=== PATIENT | male | born 1990 | race Caucasian/White ===

== ENCOUNTER 2018-06-07 19:32 | Emergency (ER) | payer MEDICAID, OTHER | END 2018-06-07 20:57 | disposition left against medical advice (07) | LOC: UCCORT 19:32 | DX: M79.645 Pain in left finger(s) (principal); Z53.21 Procedure and treatment not carried out due to patient leaving prior to being seen by health care provider ==

== ENCOUNTER 2018-06-08 16:20 | Emergency (ER) | payer OTHER ==
[2018-06-08 17:25] VITALS: BP 135/94
--- NOTE | 2018-06-08 18:00 | UC ---
Hand/Wrist HPI - HPI Summary HPI Summary: Slammed third digit of left hand in a steel door frame on 06/04, with avulsion fracture of the distal phalanx diagnsoed on xray at [facility]. Has fracture fragments seen on xray. Finger is splinted, has been using ibuprofen 400mg for pain, taking about 1600mg in the past 12 hours. Increasing pain over the past 2 days. Has had episodes of vomiting x 6 weeks, without assessment by PMD and no interventions made on his part. Smokes, uses ibu for migraines up to 100mg per day, no caffeine. Has been planning to see PMD for assessment. Reviewed [facility] history. - History Of Current Complaint Chief Complaint: UCUpperExtremity Stated Complaint: INJURY LEFT MIDDLE FINGER Time Seen by Provider: 06/08/18 17:45 Hx Obtained From: Patient, Family/Social Welfare Administrator - here with his . Onset/Duration: Sudden Onset, Lasting Days - 4 Severity Initially: Moderate Severity Currently: Severe Pain Intensity: 10 Character Of Pain: Dull, Throbbing Aggravating Factor(s): Movement Alleviating Factor(s): Ice Associated Signs And Symptoms: Positive: Swelling, Redness - Allergies/Home Medications Allergies/Adverse Reactions: Allergies Allergy/AdvReac Type Severity Reaction Status Date / Time No Known Allergies Allergy Verified 06/08/18 17:26 PMH/Surg Hx/FS Hx/Imm Hx - Additional Past Medical History Additional PMH: Does not see MD for regular assessment, with recent recognition of need for evaluation. 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 - Social History Occupation: Employed Full-time - self employed [employer] Lives: With Family Alcohol Use: Occasionally Substance Use Type: None Smoking Status (MU): Heavy Every Day Tobacco Smoker Type: Cigarettes Amount Used/How Often: 1 PK DAILY Household Exposure Type: Cigarettes - Immunization History Most Recent Tetanus Shot: TETANUS WITHIN LAST 5 YRS. Review of Systems All Other Systems Reviewed And Are Negative: Yes Constitutional: Positive: Negative Skin: Positive: Negative Eyes: Positive: Negative ENT: Positive: Negative Respiratory: Positive: Negative Cardiovascular: Positive: Negative Gastrointestinal: Positive: Vomiting Genitourinary: Positive: Other - has never been checked for polycystic kidney disease. Motor: Positive: Decreased ROM - left middle digit. Past avulstion of distal second digit Neurovascular: Positive: Negative Musculoskeletal: Positive: Arthralgia Neurological: Positive: Negative Psychological: Positive: Negative Is Patient Immunocompromised?: Yes Physical Exam Triage Information Reviewed: Yes Appearance: Ill-Appearing - looks thin and chronically unwell, Pain Distress - moderate, Thin Vital Signs: Initial Vital Signs Temp 97.8 F 06/08/18 17:22 Pulse 74 06/08/18 17:22 Resp 16 06/08/18 17:22 BP 135/94 06/08/18 17:22 Pulse Ox 99 06/08/18 17:22 ENT: Positive: Pharynx normal Dental: Positive: Gross Decay/Caries @ - throughout Neck: Positive: Supple, Nontender, No Lymphadenopathy Respiratory: Positive: Lungs clear, Normal breath sounds Cardiovascular: Positive: RRR, No Murmur Abdomen Description: Positive: Nontender, No Organomegaly, Soft Bowel Sounds: Positive: Present Musculoskeletal Exam: Other - left hand third digit with swelling and erythema of distal digit, erythema extending to mid middle phalanx. Area around nail bed is macerated with crusting, dried blood. No subungual hematoma Musculoskeletal: Positive: ROM Limited @ - DIP Neurological: Positive: Alert, Muscle Tone Normal Psychological Exam: Normal Skin Exam: Other - erythema distal 3rd digit left hand Hand/Wrist Course/Dx - Course Course Of Treatment: antibiotics for treatment of cellulitis; improve pain control, omeprazole for recurrent vomiting. Continue splinting and refer to hand surgeon. - Differential Dx/Diagnosis Differential Diagnosis/HQI/PQRI: Cellulitis, Fracture Provider Diagnosis: Cellulitis and abscess of finger, unspecified, Gastritis Discharge - Sign-Out/Discharge Documenting (check all that apply): Patient Departure All imaging exams completed and their final reports reviewed: No Studies - Discharge Plan Condition: Stable Disposition: HOME Prescriptions: Cephalexin CAP* [Keflex 500 CAP*] 500 mg PO QID #28 cap Hydrocodone/Acetaminophen [Hydrocodone/Acetaminophen 5-325 mg] 2 tab PO Q8H PRN #20 tab MDD 6 PRN Reason: Pain - Moderate To Severe Omeprazole CAP* [Prilosec CAP* 20 MG] 20 mg PO DAILY #30 cap. Patient Education Materials: Cellulitis (ED), Finger Fracture (ED), Diphtheria/ Pertussis/Tetanus Vaccine (By injection) Referrals: No Primary Care Phys,NOPCP [Primary Care Provider] - Lake Arora MD [Medical Doctor] - Additional Instructions: Begin cephalexin for likely infection which has begun as a result of the trauma to the nail Because of your history of vomiting, please start use of omeprazole to protect your stomach. The history suggests gastritis or ulcer, and it is important that you follow up as soon as possible to begin testing to evaluate this. Take omeprazole about 20 minutes before a meal to ensure best effect of the medication. Limit use of ibuprofen due to vomiting. I also urge you to be screened for polycystic kidney disease. You have hydrocodone to use for pain, with caution because it can be addictive. You can take additional acetaminophen of 650mg three times daily along with the hydrocodone. You have a referral to Dr. Arora who is a hand specialist. Call tomorrow and request a visit in the [place] location. CALL EARLY as he has a clinic in [place] tomorrow. Your tetanus was boosted today. - Billing Disposition and Condition Condition: STABLE Disposition: Home
[2018-06-08] MEDS ORDERED: Tetan/Diph/Pertus SYR(Tdap)* 0.5 ML SYR(BOOSTRIX) use SYR IM ONE (18:15)
== END 2018-06-08 18:47 | disposition home or self-care (01) ==
LOC: UCCORT 16:20
DX: Z51.89 Encounter for other specified aftercare (principal); L03.012 Cellulitis of left finger; L02.512 Cutaneous abscess of left hand; K29.70 Gastritis, unspecified, without bleeding; F17.210 Nicotine dependence, cigarettes, uncomplicated
CPT/HCPCS: 90471; 90715; 99213; G0463